=== PATIENT | female | born 1950 | race Caucasian/White ===

== ENCOUNTER 2017-08-08 16:58 | Emergency (ER) | payer MEDICARE, OTHER ==
--- NOTE | 2017-08-08 17:21 | ED Physician Documentation ---
PD HPI FEMALE - Stated complaint Stated Complaint: FEMALE - Chief complaint Chief Complaint: UTI - History obtained from History obtained from: Patient - History of Present Illness Timing - onset: Yesterday Timing - duration: Days (2) Timing - details: Gradual onset Pain level max: 0 Pain level max: 0 Associated symptoms: Dysuria, Urinary frequency, Hematuria. No: Fever, Chest/ shoulder pain, Abdominal pain, Back pain, Pelvic pain Similar symptoms before: Diagnosis (UTI) Recently seen: Not recently seen Review of Systems Constitutional: denies: Fever, Chills Ears: denies: Ear pain Nose: denies: Rhinorrhea / runny nose, Congestion Cardiac: denies: Chest pain / pressure Respiratory: denies: Dyspnea, Cough GI: denies: Abdominal Pain, Nausea, Vomiting, Diarrhea : reports: Dysuria, Frequency, Hesitancy, Hematuria. denies: Incontinent Skin: denies: Rash Musculoskeletal: denies: Neck pain, Back pain Neurologic: denies: Headache PD PAST MEDICAL HISTORY - Past Medical History Past Medical History: Yes Cardiovascular: Hypertension, Atrial fibrillation Endocrine/Autoimmune: HyPOthyroidism - Present Medications Home Medications: Ambulatory Orders Medication Instructions Recorded Confirmed Estrogens, Conjugated [Premarin] 0.3 mg PO 08/08/17 Flecainide Acetate 150 mg PO 08/08/17 Levothyroxine Sodium [Synthroid] 100 mcg PO 08/08/17 Lisinopril 08/08/17 Loratadine [Claritin] 10 mg PO 08/08/17 Metoprolol Tartrate 25 mg PO 08/08/17 Nitrofurantoin Monohyd/M-Cryst 100 mg PO BID #10 capsule 08/08/17 [Macrobid 100 mg Capsule] Warfarin Sodium [Coumadin] 4 mg PO 08/08/17 08/08/17 - Allergies Allergies/Adverse Reactions: Allergies Allergy/AdvReac Type Severity Reaction Status Date / Time Penicillins Allergy Unknown Verified 08/08/17 17:12 Sulfa (Sulfonamide Allergy Unknown Verified 08/08/17 17:12 Antibiotics) - Social History Does the pt smoke?: No Smoking Status: Former smoker PD ED PE NORMAL - Vitals Vital signs reviewed: Yes - General General: Alert and oriented X 3 - HEENT HEENT: Moist mucous membranes - Neck Neck: Supple, no meningeal sign - Cardiac Cardiac: RRR - Respiratory Respiratory: No respiratory distress, Clear bilaterally - Abdomen Abdomen: Soft, Non tender, Non distended - Back Back: No CVA TTP - Derm Derm: Warm and dry - Neuro Neuro: Alert and oriented X 3 Results - Vitals Vitals: Vital Signs - 24 hr 18 18 17:05 17:28 Temperature 36.7 C 36.6 C Heart Rate 91 83 Respiratory 18 18 Rate Blood Pressure 200/113 H 166/89 H O2 Saturation 95 95 Oxygen O2 Source Room air - Labs Labs: Laboratory Tests 08/08/17 08/08/17 17:05 17:24 Whole Blood INR 2.8 H Urine Color RED/BLOODY Urine Clarity BLOODY Urine pH 6.0 Ur Specific [place] 1.010 Urine Protein 30 H Urine Glucose (UA) NEGATIVE Urine Ketones NEGATIVE Urine Occult Blood LARGE H Urine Nitrite NEGATIVE Urine Bilirubin NEGATIVE Urine Urobilinogen 0.2 (NORMAL) Ur Leukocyte Esterase TRACE H Urine RBC TNTC H Urine WBC 0-3 Ur Squamous Epith Cells NONE SEEN Urine Bacteria None Seen Ur Microscopic Review INDICATED Urine Culture Comments INDICATED PD MEDICAL DECISION MAKING - ED course Complexity details: reviewed results, re-evaluated patient, considered differential, d/w patient ED course: Patient is a 66-year-old female who has gross hematuria and symptoms consistent with a UTI. We will trial her on antibiotics and see how she progresses. Her INR is 2.8, will not change her warfarin at this time. This is a stable number for her. She has no back pain. No evidence of aortic or renal artery dissection. No evidence of pyelonephritis. No abdominal pain. No vomiting. Patient counseled regarding signs and symptoms for which I believe and urgent re -evaluation would be necessary. Patient with good understanding of and agreement to plan and is comfortable going home at this time This document was made in part using voice recognition software. While efforts are made to proofread this document, sound alike and grammatical errors may occur. - Sepsis Event Vital Signs: Vital Signs - 24 hr 18 1618 17:05 17:28 Temperature 36.7 C 36.6 C Heart Rate 91 83 Respiratory 18 18 Rate Blood Pressure 200/113 H 166/89 H O2 Saturation 95 95 Oxygen O2 Source Room air Departure - Departure Disposition: 01 Home, Self Care Clinical Impression: Urinary tract infection Qualifiers: Urinary tract infection type: acute cystitis Hematuria presence: with hematuria Qualified Code(s): N30.01 - Acute cystitis with hematuria Hematuria Qualifiers: Hematuria type: gross Qualified Code(s): R31.0 - Gross hematuria Condition: Good Instructions: ED UTI Cystitis Female Follow-Up: WILLA IBRAHIM MD [Primary Care Provider] - Within 1 week Prescriptions: Nitrofurantoin Monohyd/M-Cryst [Macrobid 100 mg Capsule] 100 mg PO BID #10 capsule Comments: Take all antibiotics until gone. Return if you worsen. If your hematuria does not improve with antibiotics, you will need further investigation with your doctor.
[2017-08-08 17:29] VITALS: BP 166/89
[2017-08-08 17:44] LABS: BILIRUBIN,URINE NEGATIVE (NEGATIVE); GLUCOSE, URINE (UA) NEGATIVE (NEGATIVE); KETONES,URINE (UA) NEGATIVE (NEGATIVE); LEUKOCYTE ESTERASE, URINE TRACE (NEGATIVE); NITRITE,URINE NEGATIVE (NEGATIVE); OCCULT BLOOD,URINE LARGE (NEGATIVE); PROTEIN,URINE 30 mg/dL (NEGATIVE); UROBILINOGEN,URINE 0.2 (NORMAL) E.U./dL (NORMAL)
[2017-08-08 17:46] LABS: BACTERIA,URINE None Seen /HPF (None Seen); CLARITY,URINE BLOODY (CLEAR); RBC,URINE TNTC /HPF (0-5); SQUAMOUS EPITHELIAL CELL,UR NONE SEEN (<= Few)
== END 2017-08-08 18:03 | disposition home or self-care (01) ==
LOC: ED 16:58
DX: N30.01 Acute cystitis with hematuria (principal); I10 Essential (primary) hypertension; I48.91 Unspecified atrial fibrillation; E03.9 Hypothyroidism, unspecified; Z79.01 Long term (current) use of anticoagulants; Z87.891 Personal history of nicotine dependence
CPT/HCPCS: 81001; 81003; 85610; 87086; 87181; 99283